=== PATIENT | female | born 1995 | race Two or more races ===

== ENCOUNTER 2022-04-13 15:07 | Emergency (ER) | payer MEDICAID ==
[~2022-04-13] VITALS: Ht 160 cm; Wt 93.9 kg
[2022-04-13] MEDS ORDERED: KETOROLAC TROMETHAMINE 15 MG INJ IM ONE (16:15)
--- NOTE | 2022-04-13 16:56 | NUR ---
Urine sent to lab.
[2022-04-13 17:11] LABS: HEMATOCRIT 40.2 % (31.2-41.9); MEAN CORPUSCULAR HEMOGLOBIN 26.1 uug (24.7-32.8); MEAN CORPUSCULAR VOLUME 80.2 fL (75.5-95.3); PLATELET COUNT (AUTO) 412 K/uL (179-408)
[2022-04-13 17:15] LABS: *BILIRUBIN,URIN NEGATIVE (NEGATIVE); *BLOOD, URINE NEGATIVE (NEGATIVE); *CLARITY,URINE CLEAR (CLEAR); *COLOR,URINE YELLOW (YELLOW); *KETONES,URINE TRACE (NEGATIVE); *UROBILINOGEN,URINE 0.2 E.U./dl (NORMAL); LEUKOCYTE ESTERASE ,URINE NEGATIVE (NEGATIVE); NITRITE, URINE NEGATIVE (NEGATIVE); PH,URINE 6.5 (5.0-8.0); UGLUCOSE NEGATIVE (NEGATIVE)
[2022-04-13 17:22] LABS: *URINE HCG, QUAL NEGATIVE (NEGATIVE)
[2022-04-13 17:25] LABS: CREATININE 0.6 mg/dL (0.6-1.3); POTASSIUM 3.8 mmol/L (3.5-5.1)
[2022-04-13 17:37] LABS: BILIRUBIN,TOTAL 0.2 mg/dL (0.2-1.0); TOTAL PROTEIN, SERUM 8.2 g/dL (6.4-8.2)
[2022-04-13] MEDS ORDERED: KETOROLAC TROMETHAMINE 15 MG INJ ONE (18:02)
--- NOTE | 2022-04-13 18:30 | NUR ---
Patient discharged to home in stable condition. Written and verbal after care instructions given. Patient verbalizes understanding of instructions. Stressed follow up or return to ER for worsening s/s. Patient ambulate with a strong steady gait. Patient stated the the pain was improved.
[2022-04-13 18:35] VITALS: BP 117/75
== END 2022-04-13 18:30 | disposition home or self-care (01) ==
LOC: ER 15:07
DX: M79.7 Fibromyalgia (principal); M06.9 Rheumatoid arthritis, unspecified; F32.A Depression, unspecified
CPT/HCPCS: 99283; 80053; 81003; 84703; 85025; 85651; 86140; 36415; 96372; J1885; A4663